=== PATIENT | female | born 1945 | race Hispanic/Latino ===

== ENCOUNTER → 2017-11-16 | Day surgery (SDC) | payer OTHER ==
[~2017-11-16] VITALS: Ht 12.7 cm; Wt 96.6 kg
[~2017-11-16] MED LIST: CITALOPRAM HBR20 MG PO; PEPCID20 MG PO; PHENYTOIN SODI100 MG PO; PRINIVIL20 M1 PO; VITAMIN D250000 UNIT PO
--- NOTE | 2017-11-16 11:55 | Operative Report ---
Operative/Inv Procedure Report Surgery Date: 11/16/17 Name of Procedure: Excision left lumpectomy, deep margin Pre-Operative Diagnosis: Left breast cancer, positive deep margin Post-Operative Diagnosis: Same Estimated Blood Loss: scant Surgeon/Net Washer: Lali Becerra MD Anesthesia: local monitored anesthesi Specimens: Reexcised deep margin Operative/Procedure Note Note: Patient status post left lumpectomy showing a deep margin which is close for DCIS. She is brought to the operating for reexcision. Patient is brought to the operating room given 2 g of Ancef. Anesthesia was administered and the left breast was prepped and draped in a sterile fashion. Lidocaine mixed Marcaine was given in the area the previous incision at 4:00 in the left breast. Incision was opened and the saphenous tissue dissected. The prior lumpectomy cavity was identified. The deep margin was reexcised broadly and marked with orientation using margin map. ASIS was adequate and the margins of the dissection were marked using clips. Deep tissue was approximated using interrupted Vicryl sutures and the skin was closed using a running Biosyn subcuticular stitch. Steri-Strips and sterile dressings were applied, and the patient was transferred to the recovery room in satisfactory condition having tolerated the procedure well.
== END ==
LOC: STS 02:25
DX: C50.512 Malignant neoplasm of lower-outer quadrant of left female breast (principal); I10 Essential (primary) hypertension; G40.909 Epilepsy, unspecified, not intractable, without status epilepticus
CPT/HCPCS: 88305; J0690; J3490

== ENCOUNTER 2018-07-15 22:22 | Emergency (ER) | payer OTHER ==
[~2018-07-15] VITALS: Ht 154.9 cm; Wt 99.8 kg
--- NOTE | 2018-07-16 00:09 | ED GENERAL ADULT ---
History of Present Illness General Chief Complaint: General Adult Stated Complaint: BIBA FOR EVAL RIGHT KNEE INJURY/HYPERTENSIVE Source: patient, family Exam Limitations: no limitations Vital Signs & Intake/Output Vital Signs & Intake/Output Vital Signs Date Time Temp Pulse Resp B/P B/P Pulse O2 O2 Flow FiO2 Mean Ox Delivery Rate 07/16 0148 97.6 84 18 151/71 97 Room Air 07/15 2320 Room Air 07/15 2228 98.6 89 18 156/68 98 Room Air ED Intake and Output 07/16 0000 07/15 1200 Intake Total Output Total Balance Patient 99.79 kg Weight Allergies Coded Allergies: shellfish derived (Intermediate, STOMACH PUMPED 09/06/17) Reconcile Medications Citalopram Hydrobromide (Citalopram HBr) 20 MG TABLET 1 TAB PO DAILY ANXIETY (Reported) Ergocalciferol (Vitamin D2) (Vitamin D2) 50,000 UNIT CAPSULE 1 CAP PO QSAT SUPPLEMENT (Reported) Ibuprofen 800 MG TABLET 1 TAB PO TID KNEE PAIN Lisinopril (Prinivil) 20 MG TABLET 1 TAB PO DAILY BP (Reported) Phenytoin Sodium Extended 100 MG CAPSULE 2 CAP PO QAM EPILEPSY (Reported) Phenytoin Sodium Extended 100 MG CAPSULE 3 CAP PO QPM EPILEPSY (Reported) Triage Note: PT BIBA FROM HOME WITH C/O RIGHT KNEE PAIN SP FALL THREE DAYS AGO. PT REPORTS THAT SHE FELL ON HER RIGHT KNEE THREE DAYS AGO, AND AGAIN STRUCK SAME KNEE ON CABINET WHEN TRYING TO GET BACK UP. PT HAS BEEN TAKING TYLENOL FOR PAIN WITH NO EFFECT. ON ARRIVAL, PT REPORTS STIFFNESS TO SITE WITH PAINFUL MOVEMENT, BUT IS ABLE TO BEND THE KNEE. +POPLITEAL AND PEDAL PULSES. NO BRUISING NOTED. EMS ALSO REPORTS THAT PT WAS HYPERTENSIVE ON SCENE WITH SBP IN 170s. PT IN 140s ON ARRIVAL Triage Nurses Notes Reviewed? yes HPI: 72-year-old woman seen for evaluation of right knee pain. Patient reportedly bumped her knee on a cabinet 3 days ago and has had progressively worsening right knee pain since that time. She has not tried to take any medications to improve her pain and due to progressive worsening of her pain she came to the [place] ED at the insistence of her family member. She states that the pain is so bad that she can barely walk on it. She denies any other sites of trauma. Other than her moderate/severe right knee pain she otherwise feels well and has no complaints. Specifically she denies any numbness, tingling, weakness of the extremity or chest pain, palpitations, shortness of breath, or abdominal pain. Past History Travel History Traveled to [place] past 21 day No Medical History Any Pertinent Medical History? see below for history Neurological: migraine, SEIZURES EENT: NONE Cardiovascular: hypertension Respiratory: NONE Gastrointestinal: NONE Hepatic: NONE Renal: NONE Musculoskeletal: NONE Psychiatric: anxiety Endocrine: NONE Blood Disorders: NONE Cancer(s): NONE HAM BONER/Reproductive: NONE History of MRSA: No History of VRE: No History of CDIFF: No Surgical History Surgical History: N Psychosocial History Who do you live with Family What is your primary language Swedish Tobacco Use: Never used ETOH Use: denies use Family History Hx Contributory? No Review of Systems Review of Systems Constitutional: Reports: see HPI. Physical Exam Physical Exam General Appearance: well developed/nourished, no apparent distress, alert, awake , comfortable Comments: General - well developed, obese elderly woman in no acute distress HEENT - NCAT, PERRL, EOMI, anicteric sclera Neck- Supple, no JVD/HJR, no bruits, trachea midline, thyroid normal Cardio - S1, S2 w/o murmurs/gallops/rubs; regular rate and rhythm Resp - Clear to auscultation bilaterally GI - Soft, nontender, nondistended, bowel sounds present Neuro - Awake and alert, CN II - XII grossly intact Extremities - No edema, pulses intact Right knee-normal appearance without deformity, normal temperature without warmth or fluctuance, mild/moderate tenderness to palpation with negative anterior/posterior drawer sign, intact distal pulses/strength/sensation, gait is stable Core Measures ACS in differential dx? No CVA/TIA Diagnosis: No Sepsis Present: No Sepsis Focused Exam Completed? No Progress Differential Diagnoses I considered the following diagnoses in my evaluation of the patient: Knee sprain, ACL/PCL tear, meniscal tear, unhappy triad, fracture, hemarthrosis, gout , septic joint Plan of Care: As above Initial ED EKG: none Comments: Patient seen for evaluation of right knee pain. Vital signs remain within normal limits. Physical examination demonstrates a pleasant older woman in no acute distress but appearing moderately uncomfortable with a normal cardiopulmonary examination and a right knee examination demonstrating no acute deformity or signs of infection. X-ray of the right knee no acute fracture. Patient was medicated with intramuscular Toradol resulting in dramatic relief in her pain. Clinically patient appears to have a knee strain but could possibly have an underlying knee injury not seen on x-ray. Patient is discharged home with instruction to take oral ibuprofen with a large glass water and a full meal [id number] for pain relief. She is instructed to follow-up with an orthopedist for further evaluation should her symptoms not improve. She is encouraged to return to the ED should her pain worsen or should she not be able to walk on the leg. Departure Departure Disposition: HOME OR SELF CARE Condition: Stable Clinical Impression Primary Impression: Right knee sprain Referrals: Lexus VALDEZ,Lyudmila Monterroso (PCP/Family) Additional Instructions: Take ibuprofen as needed for right knee pain-be sure to take this medication with a full glass of water and a large meal. Apply heat to your right knee for pain relief, rest as needed. Avoid reinjuring your right knee. Follow-up with your orthopedic referral should your knee pain failed to resolve-you may need further imaging of your knee including a possible MRI. Follow-up with your primary care provider. Return to the ED should your symptoms worsen or if you are unable walk due to the pain. Departure Forms: Customer Survey General Discharge Information Prescriptions: Current Visit Scripts Ibuprofen 1 TAB PO TID #30 TAB Critical Care Note Critical Care Note Critical Care Time: non-applicable
--- NOTE | 2018-07-16 00:55 | RADIOLOGY REPORT ---
EXAMINATION: XR KNEE, RIGHT CLINICAL INFORMATION: Injury 3 days prior. COMPARISON: None TECHNIQUE: Four views of the right knee. FINDINGS: There is no evidence of acute fracture or tract is opacification involving the knee. The knee joint is intact. 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 Small knee joint effusion is identified. Mild regional soft tissue edema. Vascular calcifications are noted. IMPRESSION: No evidence of acute fracture or traumatic dislocation involving the right knee.
[2018-07-16] MEDS ORDERED: IBUPROFEN800 M1 PO (01:24)
[2018-07-16 01:48] VITALS: BP 151/71
== END 2018-07-16 01:48 ==
LOC: ERH 22:22
DX: S83.91XA Sprain of unspecified site of right knee, initial encounter (principal); W22.8XXA Striking against or struck by other objects, initial encounter; Y92.9 Unspecified place or not applicable; Y93.9 Activity, unspecified; I10 Essential (primary) hypertension; F41.9 Anxiety disorder, unspecified; R56.9 Unspecified convulsions
CPT/HCPCS: 73562-RT; 96372; J1885